=== PATIENT | female | born 1975 | race Caucasian/White ===

== ENCOUNTER 2016-12-10 20:07 | Emergency (ER) | payer BC ==
[2016-12-10 21:24] VITALS: BP 154/70
--- NOTE | 2016-12-10 22:27 | UC ---
Throat Pain/Nasal Sadiq HPI - HPI Summary HPI Summary: [address], FEELS LIKE HER LEFT TONSIL IS SWOLLEN, PAIN WITH SWALLOWING AND LEFT EAR PAIN. NO FEVER, COUGH OR CONGESTION. - History of Current Complaint Chief Complaint: UCRespiratory Stated Complaint: EAR AND THROAT PAIN Time Seen by Provider: 12/10/16 22:13 Hx Obtained From: Patient Hx Last Menstrual Period: one week ago Onset/Duration: Gradual Onset, Lasting Days, Still Present Severity: Moderate Pain Intensity: 6 Pain Scale Used: 0-10 Numeric Cough: None - Allergies/Home Medications Allergies/Adverse Reactions: Allergies Allergy/AdvReac Type Severity Reaction Status Date / Time No Known Allergies Allergy Verified 12/10/16 21:25 PMH/Surg Hx/FS Hx/Imm Hx Previously Healthy: Yes - Surgical History Surgical History: None - Family History Known Family History: Positive: Hypertension, Other - HIGH CHOLESTEROL - Social History Alcohol Use: Occasionally Substance Use Type: None Smoking Status (MU): Never Smoked Tobacco Review of Systems Constitutional: Negative ENT: Sore Throat, Ear Ache Respiratory: Negative Cardiovascular: Negative Gastrointestinal: Negative All Other Systems Reviewed And Are Negative: Yes Physical Exam Triage Information Reviewed: Yes Appearance: Well-Appearing, No Pain Distress, Well-Nourished Vital Signs: Initial Vital Signs Temp 98.6 F 12/10/16 21:21 Pulse 90 12/10/16 21:21 Resp 12 12/10/16 21:21 BP 154/70 12/10/16 21:21 Pulse Ox 99 12/10/16 21:21 Vital Signs Reviewed: Yes Eyes: Positive: Conjunctiva Clear ENT: Positive: Hearing grossly normal, Pharynx normal, TMs normal. Negative: Tonsillar swelling, Tonsillar exudate, Muffled/hoarse voice Neck: Positive: Supple, Tenderness @ - MILD SPFL CERVICAL LAD, Enlarged Nodes @ - MILD SPFL CERVICAL LAD (RIGHT>LEFT) Respiratory Exam: Normal Cardiovascular Exam: Normal Abdomen Description: Positive: Soft Musculoskeletal: Positive: No Edema Neurological: Positive: Alert Psychological: Positive: Age Appropriate Behavior Skin: Negative: rashes Throat Pain/Nasal Course/Dx - Differential Dx/Diagnosis Provider Diagnoses: ACUTE PHARYNGITIS Discharge - Discharge Plan Condition: Stable Disposition: HOME Patient Education Materials: Pharyngitis (ED) Referrals: Grace White MD [Primary Care Provider] - If Needed Additional Instructions: EVERYTHING LOOKS GOOD ON PHYSICAL EXAM TODAY. NO EAR INFECTION OR STREP THROAT. LUNGS SOUND GOOD. TAKE OTC MEDS FOR DISCOMFORT AND DRINK COOL LIQUIDS. FOLLOW- UP WITH YOUR PCP IF YOU ARE NOT IMPROVING OVER THE NEXT WEEK OR SO. YOU MAY BENEFIT FROM ENT EVALUATION.
== END 2016-12-10 22:33 | disposition home or self-care (01) ==
LOC: UCEAST 20:07
DX: J02.9 Acute pharyngitis, unspecified (principal)
CPT/HCPCS: 99211; G0463

== ENCOUNTER 2017-06-09 09:45 | Emergency (ER) | payer BC ==
[2017-06-09 10:45] LABS: ABS Basophils 0.1 10^3/ul (0-0.2); ABS Eosinophils 0.1 10^3/ul (0-0.6); ABS Lymphocytes 1.8 10^3/ul (1.0-4.8); ABS Monocytes 0.4 10^3/ul (0-0.8); ABS Neutrophils 3.5 10^3/ul (1.5-7.7); ABS Nucleated RBC 0 10^3/ul; Eosinophil % 1.2 % (0-6); Hematocrit 43 % (35-47); Hemoglobin 14.6 g/dl (12.0-16.0); Lymphocyte % 30.5 % (25-47); Mean Corpuscular HGB Conc 34 g/dl (31-36); Mean Corpuscular Hemoglobin 32 pg (27-31); Mean Corpuscular Volume 96 fL (80-97); Mean Platelet Volume 8 um3 (7.4-10.4); Nucleated Red Blood Cells % 0.1; Platelet Count 210 10^3/ul (150-450); Red Blood Count 4.51 10^6/ul (4.0-5.4); Red Cell Distribution Width 13 % (10.5-15); White Blood Count 5.9 10^3/ul (3.5-10.8)
[2017-06-09] MEDS ORDERED: Ondansetron ODT TAB* 4 MG PO ONE (10:46)
--- NOTE | 2017-06-09 11:50 | RAD ---
INDICATION: Epigastric and breast pain COMPARISON: None. TECHNIQUE: Single AP portable view of the chest was obtained. FINDINGS: Image quality is compromised due to the relative inferiority of a portable chest x-ray. The heart and mediastinum exhibit normal size and contour. The lungs are grossly clear. There is no evidence of a large pleural effusion. Visualized bones are normal for the patient's age. IMPRESSION: No radiographic evidence for acute cardiopulmonary abnormality on this portable chest x-ray.
[2017-06-09 13:08] VITALS: BP 124/78
--- NOTE | 2017-06-09 17:58 | ED ---
Liseth Saxena Nilda, scribed for Liam Maradiaga MD on 06/09/17 at 1039 . HPI Chest Pain - HPI Summary HPI Summary: This patient is a 41 year old F presenting to [facility] accompanied by with a chief complaint of CP (pressure and burning, central radiating towards left) for the past 4 days. states pt saw peanut butter maker (Dr. Olivarez) this morning who advised getting bloodwork, stating there was something abnormal with pts exam. The patient rates the pain 3/10 in severity. Symptoms aggravated and alleviated by nothing including aspirin and antacids. Patient reports feelings of expansion of chest followed by intermittent palpitations and tachycardia (112bpm while lying down), and lightheadedness. Patient denies diaphoresis, N/V, SOB, and fever. Pt is nonsmoker. - History of Current Complaint Chief Complaint: EDChestPainROMI Time Seen by Provider: 06/09/17 10:12 Hx Obtained From: Patient, Family/Tennis Director - Hx Last Menstrual Period: one week ago Onset/Duration: Started Minutes Ago Timing: Constant Current Severity: Mild Pain Intensity: 3 Pain Scale Used: 0-10 Numeric Chest Pain Location: Mid Sternal, Left Lateral Chest Pain Radiates: No Character: Burning, Pressure/Squeezing Aggravating Factor(s): Nothing Alleviating Factor(s): Nothing Associated Signs and Symptoms: Positive: Other: - feelings of expansion of chest followed by intermittent palpitations and tachycardia (112bpm while lying down), and lightheadedness. Patient denies diaphoresis, N/V, SOB, and fever. - Allergy/Home Medications Allergies/Adverse Reactions: Allergies Allergy/AdvReac Type Severity Reaction Status Date / Time No Known Allergies Allergy Verified 12/10/16 21:25 PMH/Surg Hx/FS Hx/Imm Hx Sensory History: Denies: Hx Legally Blind EENT History: Denies: Hx Deafness Infectious Disease History: No Infectious Disease History: Denies: Traveled Outside the [place] in Last 30 Days - Family History Known Family History: Positive: Cardiac Disease, Hypertension, Other - HIGH CHOLESTEROL - Social History Alcohol Use: Occasionally Substance Use Type: Reports: None Smoking Status (MU): Never Smoked Tobacco Review of Systems Negative: Fever, Skin Diaphoresis Positive: Palpitations, Chest Pain, Other - tachycardia (112 bpm max) Negative: Shortness Of Breath Negative: Vomiting, Nausea Neurological: Other - lightheadedness All Other Systems Reviewed And Are Negative: Yes Physical Exam - Summary Physical Exam Summary: VITAL SIGNS: Reviewed. GENERAL: Patient is a well-developed and nourished female who is lying comfortable in the stretcher. Patient is not in any acute respiratory distress. HEAD AND FACE: No signs of trauma. No ecchymosis, hematomas or skull depressions. No sinus tenderness. EYES: PERRLA, EOMI x 2, No injected conjunctiva, no nystagmus. EARS: Hearing grossly intact. Ear canals and tympanic membranes are within normal limits. MOUTH: Oropharynx within normal limits. NECK: Supple, trachea is midline, no adenopathy, no JVD, no carotid bruit, no c- spine tenderness, neck with full ROM. CHEST: Symmetric, no tenderness at palpation LUNGS: Clear to auscultation bilaterally. No wheezing or crackles. CVS: Regular rate and rhythm, S1 and S2 present, no murmurs or gallops appreciated. ABDOMEN: Soft, non-tender. No signs of distention. No rebound no guarding, and no masses palpated. Bowel sounds are normal. EXTREMITIES: FROM in all major joints, no edema, no cyanosis or clubbing. NEURO: Alert and oriented x 3. No acute neurological deficits. Speech is normal and follows commands. SKIN: Dry and warm Triage Information Reviewed: Yes Vital Signs On Initial Exam: Initial Vitals Temp Pulse Resp BP Pulse Ox 98.6 F 86 18 129/63 100 06/09/17 09:58 06/09/17 09:58 06/09/17 09:58 06/09/17 09:58 06/09/17 09:58 Vital Signs Reviewed: Yes Diagnostics - Vital Signs Vital Signs Temp Pulse Resp BP Pulse Ox 06/09/17 09:58 98.6 F 86 18 129/63 100 - Laboratory Lab Results: Lab Results 06/09/17 06/09/17 06/09/17 Range/Units 10:31 10:31 10:31 WBC 5.9 (3.5-10.8) 10^3/ul RBC 4.51 (4.0-5.4) 10^6/ul Hgb 14.6 (12.0-16.0) g/dl Hct 43 (35-47) % MCV 96 (80-97) fL MCH 32 H (27-31) pg MCHC 34 (31-36) g/dl RDW 13 (10.5-15) % Plt Count 210 (150-450) 10^3/ul MPV 8 (7.4-10.4) um3 Neut % (Auto) 59.5 (38-83) % Lymph % (Auto) 30.5 (25-47) % [place] % (Auto) 7.5 (1-9) % Eos % (Auto) 1.2 (0-6) % Baso % (Auto) 1.3 (0-2) % Absolute Neuts (auto) 3.5 (1.5-7.7) 10^3/ul Absolute Lymphs (auto) 1.8 (1.0-4.8) 10^3/ul Absolute Monos (auto) 0.4 (0-0.8) 10^3/ul Absolute Eos (auto) 0.1 (0-0.6) 10^3/ul Absolute Basos (auto) 0.1 (0-0.2) 10^3/ul Absolute Nucleated RBC 0 10^3/ul Nucleated RBC % 0.1 D-Dimer, Quantitative (Less Than 230) ng/mL Sodium 139 (133-145) mmol/L Potassium 3.6 (3.5-5.0) mmol/L Chloride 105 (101-111) mmol/L Carbon Dioxide 30 (22-32) mmol/L Anion Gap 4 (2-11) mmol/L BUN 12 (6-24) mg/dL Creatinine 0.65 (0.51-0.95) mg/dL Est GFR ( Amer) 129.8 (>60) Est GFR (Non-Af Amer) 101.0 (>60) BUN/Creatinine Ratio 18.5 (8-20) Glucose 72 (70-100) mg/dL Calcium 9.5 (8.6-10.3) mg/dL Magnesium 1.9 (1.9-2.7) mg/dL Total Bilirubin 0.50 (0.2-1.0) mg/dL AST 13 (13-39) U/L ALT 9 (7-52) U/L Alkaline Phosphatase 42 (34-104) U/L Total Creatine Kinase 54 (10-223) U/L CK-MB (CK-2) 1.0 (0.6-6.3) ng/mL Troponin I 0.00 (<0.04) ng/mL B-Natriuretic Peptide 45 ( - 100) pg/mL Total Protein 7.2 (6.4-8.9) g/dL Albumin 4.5 (3.2-5.2) g/dL Globulin 2.7 (2-4) g/dL Albumin/Globulin Ratio 1.7 (1-3) TSH 1.50 (0.34-5.60) mcIU/mL Thyroxine (T4) 7.56 (6.09-12.23) mcg/mL 06/09/17 Range/Units 10:31 WBC (3.5-10.8) 10^3/ul RBC (4.0-5.4) 10^6/ul Hgb (12.0-16.0) g/dl Hct (35-47) % MCV (80-97) fL MCH (27-31) pg MCHC (31-36) g/dl RDW (10.5-15) % Plt Count (150-450) 10^3/ul MPV (7.4-10.4) um3 Neut % (Auto) (38-83) % Lymph % (Auto) (25-47) % [place] % (Auto) (1-9) % Eos % (Auto) (0-6) % Baso % (Auto) (0-2) % Absolute Neuts (auto) (1.5-7.7) 10^3/ul Absolute Lymphs (auto) (1.0-4.8) 10^3/ul Absolute Monos (auto) (0-0.8) 10^3/ul Absolute Eos (auto) (0-0.6) 10^3/ul Absolute Basos (auto) (0-0.2) 10^3/ul Absolute Nucleated RBC 10^3/ul Nucleated RBC % D-Dimer, Quantitative < 200 (Less Than 230) ng/mL Sodium (133-145) mmol/L Potassium (3.5-5.0) mmol/L Chloride (101-111) mmol/L Carbon Dioxide (22-32) mmol/L Anion Gap (2-11) mmol/L BUN (6-24) mg/dL Creatinine (0.51-0.95) mg/dL Est GFR ( Amer) (>60) Est GFR (Non-Af Amer) (>60) BUN/Creatinine Ratio (8-20) Glucose (70-100) mg/dL Calcium (8.6-10.3) mg/dL Magnesium (1.9-2.7) mg/dL Total Bilirubin (0.2-1.0) mg/dL AST (13-39) U/L ALT (7-52) U/L Alkaline Phosphatase (34-104) U/L Total Creatine Kinase (10-223) U/L CK-MB (CK-2) (0.6-6.3) ng/mL Troponin I (<0.04) ng/mL B-Natriuretic Peptide ( - 100) pg/mL Total Protein (6.4-8.9) g/dL Albumin (3.2-5.2) g/dL Globulin (2-4) g/dL Albumin/Globulin Ratio (1-3) TSH (0.34-5.60) mcIU/mL Thyroxine (T4) (6.09-12.23) mcg/mL Result Diagrams: 06/09/17 10:31 06/09/17 10:31 Lab Statement: Any lab studies that have been ordered have been reviewed, and results considered in the medical decision making process. - Radiology CXR Radiology Interpretation Completed By: Radiologist - CXR, per radiologist, reveals no radiographic evidence for acute cardiopulmonary abnormality on this portable chest x-ray. Dr. Maradiaga has reviewed this radiology report. - EKG 0952 Cardiac Rate: NL EKG Rhythm: Sinus Rhythm - 83 bpm EKG Interpretation: no ST elevation, T-wave inversion in 3 Chest Pain Course/Dx - Course Assessment/Plan: This patient is a 41 year old F presenting to [facility] accompanied by with a chief complaint of CP (pressure and burning, central radiating towards left) for the past 4 days. states pt saw peanut butter maker (Dr. Olivarez) this morning who advised getting bloodwork, stating there was something abnormal with pts exam. The patient rates the pain 3/10 in severity. Symptoms aggravated and alleviated by nothing including aspirin and antacids. Patient reports feelings of expansion of chest followed by intermittent palpitations and tachycardia (112bpm while lying down), and lightheadedness. Patient denies diaphoresis, N/V, SOB, and fever. Pt is nonsmoker. An EKG reveals NSR, 83 bpm, no ST elevation, T-wave inversion in 3. CXR, per radiologist, reveals no radiographic evidence for acute cardiopulmonary abnormality on this portable chest x-ray. Dr. Maradiaga has reviewed this radiology report. [[id number]] Dr. Mendes (peanut butter maker) recommends D/C with f/u at his office. In the ED course, the patient was given Zofran. The pt is hemodynamically stable, alert and oriented x3. Pt will be D/C with a Dx of atypical CP and advised to follow up with Dr. Mendes (peanut butter maker) as needed. Pt understands and agrees with this plan. - Chest Pain Differential Diagnosis/HQI/PQRI: Acute VA, ACS, Angina, CHF, Chest Wall, GI Disease, Lower Respiratory Infection - Diagnoses Provider Diagnoses: Atypical chest pain - Provider Notifications Discussed Care Of Patient With: Miguel Mendes - Focuser Time Discussed With Above Provider: 12:35 Instructed by Provider To: Have Pt Call For Appt. Discharge - Discharge Plan Condition: Stable Disposition: HOME Patient Education Materials: Chest Pain (ED) Referrals: Miguel Mendes MD [Medical Doctor] - If Needed Grace White MD [Primary Care Provider] - Additional Instructions: RETURN TO THE EMERGENCY DEPARTMENT FOR CHANGING OR WORSENING SYMPTOMS. The documentation as recorded by the Liseth tovar Nilda accurately reflects the service I personally performed and the decisions made by Hiren torrez Walter, MD.
== END 2017-06-09 13:07 | disposition home or self-care (01) ==
LOC: ED 09:45
DX: R07.89 Other chest pain (principal)
CPT/HCPCS: 36415; 71045; 80053; 82550; 82553; 83735; 83880; 84436; 84443; 84484; 85025; 85379; 93005; 99283